=== PATIENT | male | born 1985 | race American Indian/Alaskan Native ===

== ENCOUNTER 2020-02-18 17:04 | Emergency (ER) | payer SELFPAY ==
[2020-02-18] MEDS ORDERED: SODIUM CHLORIDE 0.9% 1000 ML 1,000 ML IV ONE (17:41)
--- NOTE | 2020-02-18 18:00 | Emergency Department Report ---
HPI - General Chief Complaint: Overdose Time Seen by Provider: 02/18/20 17:27 - HPI HPI: This is a 34-year-old -[place] male presents to the emergency department via EMS from home with a concern for possible drug overdose versus substance abuse. The patient was found unresponsive by a roommate. When EMS arrived the patient was unresponsive, with pinpoint pupils, and there was a bag near him with an unknown substance. The patient was given 2 mg of Narcan and became much more awake and alert. To both EMS, as well as myself, the patient says that he took a single oxycodone, 30 mg pill. The patient says that he took this secondary to "my arm pain." The patient does present with a splint/cast to the left wrist and forearm and says that he has a recent fracture. The patient denies any past medical history. He denies any tobacco use or IV drug abuse. He also denies using any alcohol today. ED Past Medical Hx - Past Medical History Previous Medical History?: No - Surgical History Past Surgical History?: No - Social History Smoking Status: Never Smoker Substance Use Type: Alcohol, Marijuana ED Review of Systems ROS: Stated complaint: NKDA Other details as noted in HPI Comment: All other systems reviewed and negative Constitutional: denies: chills, fever Eyes: denies: eye pain, vision change ENT: denies: ear pain, throat pain Respiratory: denies: cough, shortness of breath Cardiovascular: denies: chest pain, palpitations Gastrointestinal: denies: abdominal pain, vomiting Genitourinary: denies: dysuria, discharge Musculoskeletal: denies: back pain, joint swelling Skin: denies: rash, lesions Neurological: denies: headache, numbness Physical Exam - Physical Exam Vital Signs: Vital Signs 02/18/20 17:14 Temperature 97.8 F Pulse Rate 68 Respiratory 14 Rate Blood Pressure 128/87 [Right] O2 Sat by Pulse 95 Oximetry Physical Exam: GENERAL: The patient is well-developed well-nourished. HENT: Normocephalic. Atraumatic. Patient has moist mucous membranes. EYES: Extraocular motions are intact. NECK: Supple. Trachea is midline. CHEST/LUNGS: Clear to auscultation. There is no respiratory distress noted. HEART/CARDIOVASCULAR: Regular. There is no tachycardia. There is no murmur. ABDOMEN: Abdomen is soft, nontender. Patient has normal bowel sounds. SKIN: Skin is warm and dry. NEURO: The patient is awake, alert, and oriented. The patient is cooperative. The patient has no focal neurologic deficits. Normal speech. Cranial nerves II through XII grossly intact. MUSCULOSKELETAL: There is no tenderness or deformity. There is no limitation range of motion. ED Course Vital Signs 02/18/20 17:14 Temperature 97.8 F Pulse Rate 68 Respiratory 14 Rate Blood Pressure 128/87 [Right] O2 Sat by Pulse 95 Oximetry - Reevaluation(s) Reevaluation #1: 02/20/20 10:06 Lab Results 02/18/20 02/18/20 02/18/20 Range/Units 18:08 18:08 18:08 WBC 17.0 H (4.5-11.0) K/mm3 RBC 4.08 (3.65-5.03) M/mm3 Hgb 13.8 (11.8-15.2) gm/dl Hct 42.6 (35.5-45.6) % MCV 104 H (84-94) fl MCH 34 H (28-32) pg MCHC 32 (32-34) % RDW 15.6 H (13.2-15.2) % Plt Count 251 (140-440) K/mm3 Lymph % (Auto) 8.0 L (13.4-35.0) % Roane % (Auto) 8.5 H (0.0-7.3) % Eos % (Auto) 0.5 (0.0-4.3) % Baso % (Auto) 0.1 (0.0-1.8) % Lymph # (Auto) 1.4 (1.2-5.4) K/mm3 Roane # (Auto) 1.4 H (0.0-0.8) K/mm3 Eos # (Auto) 0.1 (0.0-0.4) K/mm3 Baso # (Auto) 0.0 (0.0-0.1) K/mm3 Seg Neutrophils % 82.9 H (40.0-70.0) % Seg Neutrophils # 14.1 H (1.8-7.7) K/mm3 Sodium 139 (137-145) mmol/L Potassium 3.9 (3.6-5.0) mmol/L Chloride 99.2 (98-107) mmol/L Carbon Dioxide 25 (22-30) mmol/L Anion Gap 19 mmol/L BUN 18 (9-20) mg/dL Creatinine 1.0 (0.8-1.3) mg/dL Estimated GFR > 60 ml/min BUN/Creatinine Ratio 18 % Glucose 263 H (75-100) mg/dL Calcium 9.1 (8.4-10.2) mg/dL Total Bilirubin 0.40 (0.1-1.2) mg/dL AST 22 (5-40) units/L ALT 16 (7-56) units/L Alkaline Phosphatase 69 (35-129) units/L Total Protein 7.1 (6.3-8.2) g/dL Albumin 4.5 (3.9-5) g/dL Albumin/Globulin Ratio 1.7 % Urine Opiates Screen Urine Methadone Screen Ur Barbiturates Screen Ur Phencyclidine Scrn Ur Amphetamines Screen U Benzodiazepines Scrn Urine Cocaine Screen U Marijuana (THC) Screen Drugs of Abuse Note Plasma/Serum Alcohol < 0.01 (0-0.07) % /18/20 Range/Units 20:51 WBC (4.5-11.0) K/mm3 RBC (3.65-5.03) M/mm3 Hgb (11.8-15.2) gm/dl Hct (35.5-45.6) % MCV (84-94) fl MCH (28-32) pg MCHC (32-34) % RDW (13.2-15.2) % Plt Count (140-440) K/mm3 Lymph % (Auto) (13.4-35.0) % Ro[place] % (Auto) (0.0-7.3) % Eos % (Auto) (0.0-4.3) % Baso % (Auto) (0.0-1.8) % Lymph # (Auto) (1.2-5.4) K/mm3 Roane # (Auto) (0.0-0.8) K/mm3 Eos # (Auto) (0.0-0.4) K/mm3 Baso # (Auto) (0.0-0.1) K/mm3 Seg Neutrophils % (40.0-70.0) % Seg Neutrophils # (1.8-7.7) K/mm3 Sodium (137-145) mmol/L Potassium (3.6-5.0) mmol/L Chloride (98-107) mmol/L Carbon Dioxide (22-30) mmol/L Anion Gap mmol/L BUN (9-20) mg/dL Creatinine (0.8-1.3) mg/dL Estimated GFR ml/min BUN/Creatinine Ratio % Glucose (75-100) mg/dL Calcium (8.4-10.2) mg/dL Total Bilirubin (0.1-1.2) mg/dL AST (5-40) units/L ALT (7-56) units/L Alkaline Phosphatase (35-129) units/L Total Protein (6.3-8.2) g/dL Albumin (3.9-5) g/dL Albumin/Globulin Ratio % Urine Opiates Screen Presumptive negative Urine Methadone Screen Presumptive negative Ur Barbiturates Screen Presumptive negative Ur Phencyclidine Scrn Presumptive negative Ur Amphetamines Screen Presumptive negative U Benzodiazepines Scrn Presumptive negative Urine Cocaine Screen Presumptive negative U Marijuana (THC) Screen Presumptive positive Drugs of Abuse Note Disclamer Plasma/Serum Alcohol (0-0.07) % ED Medical Decision Making - Lab Data Result diagrams: 02/18/20 18:08 02/18/20 18:08 - EKG Data -: EKG Interpreted by Me EKG shows normal: sinus rhythm, axis, intervals, QRS complexes (Incomplete right bundle branch block, early repolarization), ST-T waves Rate: normal - EKG Data When compared to previous EKG there are: previous EKG unavailable Interpretation: other (Sinus rhythm, normal axis, normal intervals, incomplete right bundle branch block) - Medical Decision Making This is a 34-year-old male who initially was unresponsive with suspected drug overdose who had a response to Narcan in route with EMS. Since arrival to the emergency department the patient is sleepy but is easily arousable and once awake he is oriented, AAO x3. However the patient will go right back to sleep if not continuously stimulated. Once awake the patient also does not have any focal, motor or sensory deficits and his cranial nerves are intact. Patient says that he took only a 30 mg oxycodone. The patient's labs are mostly unremarkable except for a leukocytosis of 17,000 that I believe is reactionary to the patient's overdose and resuscitation. Vital signs are reassuring including being afebrile. The patient was signed out to my colleague to follow the patient's level of alertness, get an EKG, and make sure the patient was ambulatory prior to disc harge. The UDS came back around this time as well and was positive for only marijuana. It is possible that the alleged oxycodone had not yet metabolized to be picked up by the UDS, but it is also possible that the patient did other illicit drugs that may not be picked up on this UDS. Nonetheless, the patient was followed throughout the evening until he was more awake and at his baseline mentation. His EKG did not have any morphology consistent with ST elevation myocardial infarction or any dysrhythmia. The patient was seen ambulatory prior to discharge and appeared stable. Critical Care Time: No Critical care attestation.: If time is entered above; I have spent that time in minutes in the direct care of this critically ill patient, excluding procedure time. ED Disposition Clinical Impression: Unresponsive episode, Hyperglycemia Overdose opiate Qualifiers: Encounter type: initial encounter Injury intent: accidental or unintentional Qualified Code(s): T40.601A - Poisoning by unspecified narcotics, accidental (unintentional), initial encounter Disposition: DC-01 TO HOME OR SELFCARE Is pt being admited?: No Condition: Stable Instructions: Hyperglycemia, Opioid Overdose Additional Instructions: Please follow-up with a primary care physician in the next few days. Try to stay away from foods that are high in sugar, carbohydrates and starches. Keep a blood sugar log. Please avoid any further use of narcotics or any illicit drugs. Return to the emergency department with any worsening of your symptoms, new or concerning symptoms not addressed during this current emergency department visit, or with any acute distress. Referrals: EUGENIO EUGNEE MD [Staff Physician] - 3-5 Days [facility] [Provider Group] - 3-5 Days Time of Disposition: 19:54
[2020-02-18 18:24] LABS: Basophils % (Auto) 0.1 % (0.0-1.8); Eosinophils # (Auto) 0.1 K/mm3 (0.0-0.4); Eosinophils % (Auto) 0.5 % (0.0-4.3); Hematocrit 42.6 % (35.5-45.6); Hemoglobin 13.8 gm/dl (11.8-15.2); Lymphocytes # (Auto) 1.4 K/mm3 (1.2-5.4); Mean Corpuscular HGB Conc 32 % (32-34); Mean Corpuscular Volume 104 fl (84-94); Monocytes # (Auto) 1.4 K/mm3 (0.0-0.8); Monocytes % (Auto) 8.5 % (0.0-7.3); Platelet Count 251 K/mm3 (140-440); Red Blood Count 4.08 M/mm3 (3.65-5.03); Red Cell Distribution Width 15.6 % (13.2-15.2)
[2020-02-18 18:46] LABS: Alanine Aminotransferase 16 units/L (7-56); Albumin 4.5 g/dL (3.9-5); BUN/Creatinine Ratio 18; Blood Urea Nitrogen 18 mg/dL (9-20); Calcium 9.1 mg/dL (8.4-10.2); Hemolysis Index 27
[2020-02-18 21:24] LABS: Amphetamine Screen,Urine PRESUMPTIVE NEGATIVE; Benzodiazepines Screen,Urine PRESUMPTIVE NEGATIVE; Cannabinoid Screen,Urine PRESUMPTIVE POSITIVE; Cocaine Screen,Urine PRESUMPTIVE NEGATIVE; Methadone Screen,Urine PRESUMPTIVE NEGATIVE; Opiate Screen,Urine PRESUMPTIVE NEGATIVE
[2020-02-19 03:40] VITALS: BP 116/77
== END 2020-02-19 04:26 ==
LOC: ED 17:04
DX: T40.601A Poisoning by unspecified narcotics, accidental (unintentional), initial encounter (principal); R41.89 Other symptoms and signs involving cognitive functions and awareness; R73.9 Hyperglycemia, unspecified; F12.90 Cannabis use, unspecified, uncomplicated; X58.XXXA Exposure to other specified factors, initial encounter
CPT/HCPCS: 36415; 80053; 80307; 85025; 93005; 96360; 96361; 99284; J7030; 80320; G0480